=== PATIENT | female | born 1975 | race African-American/Black ===

== ENCOUNTER 2018-04-14 12:57 | Day surgery (SDC) | payer OTHER ==
[2018-04-13 18:04] VITALS: BMI 29.6
[2018-04-14] MEDS ORDERED: ACETAMINOPHEN 325 MG TABLET (FP) PO PRN (14:59)
[2018-04-14] MEDS ORDERED: DEXAMETHASONE SOD PHOSPHATE 4 MG/1 ML VIAL ONE (15:31)
[2018-04-14] MEDS ORDERED: MIDAZOLAM HCL 2 MG/2 ML SINGLE DOSE VIAL ONE (15:32)
[2018-04-14] MEDS ORDERED: PROPOFOL 20 ML ONE ×2 (15:32)
[2018-04-14] MEDS ORDERED: DESFLURANE GAS 240 ML BOTTLE IH ONE (15:35)
[2018-04-14] MEDS ORDERED: ACETAMINOPHEN INJECTION 100 ML IVPB ONE (15:40)
[2018-04-14] MEDS ORDERED: SODIUM CHLORIDE 0.9% P/F 10 ML VIAL IJ ONE (15:49)
[2018-04-14] MEDS ORDERED: ceFAZolin SODIUM 1 GM VIAL ONE (15:49)
[2018-04-14] MEDS ORDERED: ceFAZolin SODIUM 1 GM VIAL IVPB ONE (16:00)
[2018-04-14] MEDS ORDERED: PROMETHAZINE HCL 25 MG/1 ML VIAL IVPUSH PRN (16:18)
[2018-04-14] MEDS ORDERED: ONDANSETRON 4 MG/2 ML VIAL IVPUSH PRN (16:18)
[2018-04-14] MEDS ORDERED: LACTATED RINGERS SOLUTION 1,000 ML IV SCH (16:30)
[2018-04-14] MEDS ORDERED: GLYCOPYRROLATE 0.2 MG/1 ML VIAL ONE (16:38)
[2018-04-14] MEDS ORDERED: BUPIVACAINE HCL/PF 0.5% (5MG/ML) 10 ML VIAL ONE (16:40)
[2018-04-14] MEDS ORDERED: BUPIVACAINE HCL/PF 0.5% (5MG/ML) 10 ML VIAL IJ ONE (16:42)
--- NOTE | 2018-04-14 17:06 | HP ---
Admitting History and Physical - Admission History of Present Illness: 42 yo with known hx/o ectopic for surgical removal Limitations to Obtaining History: No Limitations - Past Medical History Cardiovascular: Yes: HTN Pulmonary: No: Asthma ...LMP: 02/25/18 - Past Surgical History Past Surgical History: Yes: None - Smoking History Smoking history: Never smoked - Alcohol/Substance Use Hx Alcohol Use: Yes (SOCIAL) Home Medications - Allergies Allergies/Adverse Reactions: Allergies Allergy/AdvReac Type Severity Reaction Status Date / Time No Known Allergies Allergy Verified 04/14/18 14:17 - Home Medications Home Medications: Ambulatory Orders Labetalol HCl 100 mg PO BID 04/13/18 Acetaminophen [Tylenol -] 500 mg PO PRN 04/14/18 Oxycodone HCl/Acetaminophen [Percocet 5-325 mg Tablet] 1 tab PO BID #5 tablet MDD 2 04/14/18 Family Disease History - Family Disease History Family History: Denies Review of Systems - Review of Systems Constitutional: reports: No Symptoms Cardiovascular: reports: No Symptoms Respiratory: reports: No Symptoms Gastrointestinal: reports: No Symptoms Genitourinary: reports: No Symptoms Endocrine: reports: No Symptoms Hematology/Lymphatic: reports: No Symptoms Psychiatric: reports: No Symptoms Physical Examination Vital Signs: Vital Signs Temperature 98.4 F 04/14/18 14:25 Pulse Rate 94 H 04/14/18 14:25 Respiratory Rate 18 04/14/18 14:25 Blood Pressure 129/85 04/14/18 14:25 O2 Sat by Pulse Oximetry (%) 100 04/14/18 14:25 Constitutional: Yes: Well Nourished, No Distress, Calm Cardiovascular: Yes: Regular Rate and Rhythm Respiratory: Yes: Regular, CTA Bilaterally Gastrointestinal: Yes: Normal Bowel Sounds, Soft Edema: No Peripheral Pulses WNL: No ...Motor Strength: WNL Imaging - Results Ultrasound: Image Reviewed Assessment/Plan 42 yo with suspected right ectopic for surgical removal 1. Consents reviewed and signed 2. Routine labs reviewed 3. SCDs / TEDS for DVT PPX 4. Ancef data processing control clerk 5. Will proceed to OR
--- NOTE | 2018-04-14 17:07 | OP ---
Operative Note - Note: Operative Date: 04/14/18 Pre-Operative Diagnosis: ruptured right ectopic Operation: laparoscopic right salpingectomy Findings: ruptured right ectopic , approximately 200 cc hemoperitoneum Post-Operative Diagnosis: Same as Pre-op Surgeon: Sania Torres Local Flatbed Driver: Oscar Fajardo Anesthesiologist/HEEL MOLDER: Jair Mathias Anesthesia: General Specimens Removed: right fallopian tube and ectopic Estimated Blood Loss (mls): 5 Drains, Volume Out (mls): 400 (urine) Fluid Volume Replaced (mls): 1,000 Operative Report Dictated: Yes
[2018-04-14] MEDS ORDERED: oxyCODONE HCL 5 MG TABLET PO PRN (17:08)
[2018-04-14 18:24] VITALS: BP 112/72; PULSE 95; TEMP 98
--- NOTE | 2018-04-14 19:53 | OP ---
DATE OF OPERATION: 04/14/2018 ATTENDING PHYSICIAN: Minesh Chung M.D. PREOPERATIVE DIAGNOSIS: Suspected right ectopic . POSTOPERATIVE DIAGNOSIS: A ruptured right ectopic . SURGEON: Minesh Chung M.D. SAP SENIOR DEVELOPER: Oscar Fajardo M.D. ANESTHESIOLOGIST: Sandro Esparza M.D., Jair Mathias, TED INDICATION: Patient is a 42-year-old with a history of the suspected right ectopic for surgical removal. She was counseled regarding risks, benefits, alternatives, and complications to procedure including infection, bleeding, damage to surrounding organs, removal of fallopian tubes. She expressed understanding, was brought to the operating room. DESCRIPTION OF PROCEDURE: When anesthesia was found to be adequate, patient was prepped and draped in normal sterile fashion, placed in dorsal lithotomy position using Tank stirrups. A weighted speculum was placed in the patient's vagina. The anterior lip of the cervix was grasped using an Allis clamp, and a HUMI uterine manipulator was placed into the vagina, and a Diego was placed to gravity. Attention was brought to the abdominal cavity. A 5-mm incision was made with a knife and the abdomen was insufflated with carbon dioxide gas and intraperitoneal placement was confirmed using a Veress needle and using a water drop test. When adequate operating pressure was achieved, a 5-mm trocar was placed under direct visualization. Examination of the abdominal cavity revealed pneumoperitoneum, approximately 200 mL, and left 10-mm trocar was placed under direct visualization, and a 5-mm right trocar was placed under direct visualization of right lower quadrant. Examination of the fallopian tube revealed a right ectopic that looked like it was ruptured, and the decision was made for a right salpingectomy. The right fallopian tube was followed to its fimbriated end, and LigaSure was used to excise the right fallopian tube. The fallopian tube, and accompanying hemoperitoneum was placed into EndoCatch bag, and it was removed. Copious irrigation was performed. All pedicles were examined, found to be hemostatic. The left 10-mm incision was closed using 0 Vicryl using Vinh-Bulmaro device. All trocars were removed. Pneumoperitoneum was released. The examination of the left fallopian tube was normal. There was no intrahepatic lesions. The pneumoperitoneum was released. All instruments were removed from the patient's abdomen, all trocars were removed. All incisions were closed using 4-0 Monocryl, and patient was awoken from anesthesia and brought to the recovery room in stable condition. MINESH CHUNG M.D. [id number] MTDD
--- NOTE | 2018-04-16 15:29 | PATH ---
Surgical Pathology Report Patient Name: GAVI VALDOVINOS [facility]. Rec. #: [id number] /Age/Gender: 1975 (Age: 42) / F Account: [id number] Location: [facility] SUR[facility] Taken: 04/14/2018 Received: 04/15/2018 Reported: 04/16/2018 Physicians: Sania Torres Specimen(s) Received FALLOPIAN TUBE, ECTOPIC Clinical History Ectopic Final Diagnosis RIGHT TUBE AND ECTOPIC , RIGHT SALPINGECTOMY: CHORIONIC VILLI PRESENT, CONSISTENT WITH ECTOPIC (RIGHT FALLOPIAN TUBE) . Electronically Signed Mu Reza M.D. Gross Description Received in formalin labeled "right ectopic ," is a 6 cm in length fimbriated fallopian tube. The outer surface is gaspar guerra with a focal defect. There is blood clot attached to the defect. Sectioning reveals a dilated lumen containing red-brown blood clot. No definite villous tissue or somatic tissue is identified. Also received within the same container is a 10.0 x 7.5 x 2.0 cm aggregate of red-brown blood clot. Treating Engineer Helper sections are submitted in 5 cassettes as follows: 1-fimbria; 2-4-cross sections of fallopian tube; 5- separately received blood clot. 04/15/201804/15/2018
== END 2018-04-14 19:35 | disposition home or self-care (01) ==
LOC: JASU-SURG 12:57
PROVIDERS: ATTEND Obstetrics & Gynecology
PROC: 10T24ZZ Resection of Products of Conception, Ectopic, Percutaneous Endoscopic Approach (ICD-10-PCS; principal; 2018-04-14 14:30)
PROC: 0UT54ZZ Resection of Right Fallopian Tube, Percutaneous Endoscopic Approach (ICD-10-PCS; 2018-04-14 14:30)
DX: O00.101 Right tubal pregnancy without intrauterine pregnancy (principal)
CPT/HCPCS: 36415; 84703; 86850; 86900; 86901; 88305-TC; 94760; J0131

== ENCOUNTER 2018-04-19 20:45 | Emergency (ER) | payer OTHER ==
[2018-04-19 20:57] VITALS: BP 157/111; PULSE 98; TEMP 98.5; BMI 30.1
--- NOTE | 2018-04-19 20:59 | PDOC ---
Rapid Medical Evaluation Chief Complaint: Vaginal Bleeding Time Seen by Provider: 04/19/18 20:54 Medical Evaluation: Allergies Allergy/AdvReac Type Severity Reaction Status Date / Time No Known Allergies Allergy Verified 04/14/18 14:17 04/19/18 20:55 I have performed a brief in-person evaluation of this patient. The patient presents with a chief complaint of:weakness and vaginal bleeding today/ used 2 pads past 30 mins. S/P right oophorectomy wednes for Ectopic Pertinent physical exam findings: Pale, sluggish/ I have ordered the following: CbC/ Cmp/ T and S, IV The patient will proceed to the ED for further evaluation.
--- NOTE | 2018-04-19 21:35 | PDOC ---
History of Present Illness - General Chief Complaint: Vaginal Bleeding Stated Complaint: BLEEDING Time Seen by Provider: 04/19/18 20:54 - History of Present Illness Initial Comments: 04/19/18 22:08 The patient is a 42 year old female with a history of HTN who presents for evaluation of vaginal bleeding. The patient notes that she recently had a right salpingectomy 5 days ago due to a ruptured right ectopic . She notes that she has had diffuse poorly described abdominal pain worse on the left side since her surgery with associated vaginal spotting. She states that today she began to have profuse vaginal bleeding having to change her pad twice in 30 minutes with associated generalized fatigue prompting her presentation to the ED for further evaluation. She otherwise denies fevers, chills, SOB, chest pain, nausea, vomiting, or changes with urination or bowel movements. Past History - Past Medical History Allergies/Adverse Reactions: Allergies Allergy/AdvReac Type Severity Reaction Status Date / Time No Known Allergies Allergy Verified 04/19/18 20:57 Home Medications: Ambulatory Orders Labetalol HCl 100 mg PO BID 04/13/18 Acetaminophen [Tylenol -] 500 mg PO PRN 04/14/18 Oxycodone HCl/Acetaminophen [Percocet 5-325 mg Tablet] 1 tab PO BID #5 tablet MDD 2 04/14/18 Anemia: No Asthma: No Cancer: No Cardiac Disorders: Yes CVA: No COPD: No CHF: No Dementia: No Diabetes: No GI Disorders: No Disorders: No HTN: Yes Hypercholesterolemia: No Liver Disease: No Seizures: No Thyroid Disease: No - Surgical History Abdominal Surgery: No Appendectomy: No Cardiac Surgery: No Cholecystectomy: No Lung Surgery: No Neurologic Surgery: No Orthopedic Surgery: No - Suicide/Smoking/Psychosocial Hx Smoking History: Never smoked Hx Alcohol Use: Yes (SOCIAL) Drug/Substance Use Hx: No Substance Use Type: Alcohol Review of Systems - Review of Systems Comments:: 04/19/18 22:10 Constitutional: Fatigue. No fevers, chills, malaise HEENT: No Rhinorrhea, nasal congestion, visual changes Cardiovascular: No chest pain, syncope, palpitations, lightheadedness Respiratory: No Cough, SOB, Hemoptysis, Gastrointestinal: Abdominal pain. No Nausea, Vomiting, Constipation, Diarrhea, Melena Genitourinary: Vaginal bleeding. No Dysuria, Frequency, Urgency, Hesitancy, Hematuria, Flank pain Musculoskeletal: No Myalgia, arthralgia Skin: No rashes, itching, bruising, pallor Neurologic: No Headache, Dizziness, Numbness, Weakness, or Tingling Psychiatric: No Hallucinations. No SI or HI *Physical Exam - Vital Signs Last Vital Signs Temp Pulse Resp BP Pulse Ox 98.5 F 98 H 18 157/111 H 100 04/19/18 20:54 04/19/18 20:54 04/19/18 20:54 04/19/18 20:54 04/19/18 20:54 - Physical Exam Comments: 04/19/18 22:11 General Appearance: Nourished. No Apparent Distress HEENT: No Pharyngeal Erythema, Tonsillar Exudate, Tonsillar Erythema Neck: No Cervical Lymphadenopathy Respiratory/Chest: Lungs Clear, Normal Breath Sounds. No Crackles, Rales, Rhonchi, Wheezing Cardiovascular: Regular Rhythm, Regular Rate. No Murmur, Gallops, Rubs Gastrointestinal/Abdominal: Normal Bowel Sounds, Soft. Diffuse mild tenderness to palpation on exam. No Guarding, Rebound, Pelvic Exam: Normal External exam. Active bleeding noted with blood pooling in the posterior vaginal vault. No CMT or adenexal tenderness on exam. Musculoskeletal: No CVA Tenderness Extremity: Normal Capillary Refill Integumentary: Normal Color, Dry, Warm Neurologic: Fully Oriented, Alert, Normal Mood/Affect, Normal Response, Moderate Sedation - Procedure Monitoring Vital Signs: Procedure Monitoring Vital Signs Temperature 98.5 F 04/19/18 20:54 Pulse Rate 98 H 04/19/18 20:54 Respiratory Rate 18 04/19/18 20:54 Blood Pressure 157/111 H 04/19/18 20:54 O2 Sat by Pulse Oximetry (%) 100 04/19/18 20:54 ED Treatment Course - LABORATORY CBC & Chemistry Diagram: 04/20/18 00:58 04/19/18 21:22 Medical Decision Making - Medical Decision Making 04/19/18 22:12 The patient is a 42 year old female with a history of HTN who presents for evaluation of vaginal bleeding. Given the patient's history and physical exam, we will obtain a cbc, cmp, type and screen, coags, serum preg to evaluate further. Bedside Fast exam was negative for free fluid performed by myself. We will treat the patient with iv fluids and contact the patient's OB Dr. Ann. We will continue to monitor and reassess while here in the ED. 04/20/18 01:44 CBC demonstrates a hgb of 9.7 and repeat demonstrates a hgb of 7.4. CMP is unremarkable CT abdomen/pelvis demonstrates a fibriod uterus without any acute pathology as preliminarily read by our nutrition associate radiologist. We discussed the case with the patient's ob Dr. Fajardo who stated that the patient's vaginal bleeding is likely due to her no longer being from the removal of the ectopic. Given the patient's drop in HGB we believe she should be observation admitted for further monitoring. The patient voiced that she feels improved and would like to leave AMA and would return should she have any worsening symptoms or to have her HGB rechecked. The patient insists on leaving the emergency dept and is signing out against medical advice. The patient understands the risks and complications that may result from the refusal of medical care and admission which includes and permanent disability. The patient has the mental capacity of understanding the risks of refusing care and is capable of making an informed decision. The patient was instructed to return to the emergency department should hange mind regarding medical care or should condition worsen. The patient signed the Against Medical Advice form. *DC/Admit/Observation/Transfer Diagnosis at time of Disposition: Vaginal bleeding - Discharge Dispostion Disposition: AGAINST MEDICAL ADVICE Condition at time of disposition: Stable - Referrals Referrals: ON STAFF,NOT [Primary Care Provider] - Sania Torres MD [Staff Physician] - - Patient Instructions Printed Discharge Instructions: DI for Vaginal Bleeding Additional Instructions: Please return to the ER if you experience concerning or worsening symptoms including worsening difficulty breathing, weakness, or chest pain, abdominal pain, vaginal bleeding. Your lab results show that you were anemic here in the ER and you will need to have your blood work repeated by your clearance rep physician or primary care provider. Your CT scan was normal here in the ER. Please call to schedule a follow up appointment with your primary care provider and clearance rep specialist Dr. Torres within 2-3 days to discuss your ER visit and further management of your symptoms. - Post Discharge Activity
[2018-04-19 21:39] LABS: EOS % 3.8 % (0-4.5); HEMATOCRIT 28.8 % (32.4-45.2); HEMOGLOBIN 9.7 GM/dL (10.7-15.3); LYMPH % 31.7 % (8-40); MCH 26.2 pg (25.7-33.7); MCHC 33.5 g/dl (32.0-36.0); MEAN CELL VOLUME 78.2 fl (80-96); MEAN PLT VOLUME 6.9 fl (7.5-11.1); MONO % 10.7 % (3.8-10.2); NEUT % 52.8 % (42.8-82.8); PLATELET COUNT 352 K/MM3 (134-434); RBC 3.69 M/mm3 (3.60-5.2); RDW 14.7 % (11.6-15.6); WHITE BLOOD COUNT 4.6 K/mm3 (4.0-10.0)
[2018-04-19 21:49] LABS: INR 1.07 (0.83-1.09); PROTHROMBIN TIME (PATIENT) 12.6 SEC (9.7-13.0)
[2018-04-19 21:52] LABS: ACTIVATED PTT 37.7 SECONDS (25.2-36.5)
[2018-04-19] MEDS ORDERED: SODIUM CHLORIDE 1,000 ML IV STA (21:53)
[2018-04-19 22:08] LABS: BILIRUBIN,TOTAL 0.4 mg/dL (0.2-1); CALCIUM 8.5 mg/dL (8.5-10.1); CO2 27 mmol/L (21-32)
[2018-04-19 22:09] LABS: ALBUMIN 3.6 g/dl (3.4-5.0); ALK PHOS 57 U/L (45-117); ANION GAP 5 MMOL/L (8-16); BLOOD UREA NITROGEN 9 mg/dL (7-18); CHLORIDE 105 mmol/L (98-107); GLUCOSE,RANDOM 92 mg/dL (74-106); SGOT/AST 14 U/L (15-37); SGPT/ALT 15 U/L (13-61); SODIUM 137 mmol/L (136-145); TOT PROT 7.2 g/dl (6.4-8.2)
--- NOTE | 2018-04-20 00:29 | PDOC ---
Attending Attestation - Resident Resident Name: David Hodge - ED Attending Attestation I have performed the following: I have examined & evaluated the patient, The case was reviewed & discussed with the resident, I agree w/resident's findings & plan, Exceptions are as noted - HPI HPI: 04/20/18 00:05 42 F with h/o ruptured right ectopic s/p laparoscopic right salpingectomy on (04/14/18) and HTN presenting to ED with vaginal bleeding and cramps. Pt states that since her procedure, she has had vaginal spotting. However, over the past 24 hours she has had a significant increase in her bleeding. Pt also reports diffuse lower abdominal cramp-like pain. Denies F/C. Denies N/V. - Physicial Exam PE: 04/20/18 00:06 "GENERAL: Awake, alert, and fully oriented, in no acute distress. HEAD: No signs of trauma EYES: PERRLA, EOMI, sclera anicteric, conjunctiva clear ENT: Auricles normal inspection, hearing grossly normal, nares patent, oropharynx clear without exudates. Moist mucosa NECK: Nontender, no stepoffs, Normal ROM, supple, no lymphadenopathy, JVD, or masses LUNGS: Breath sounds equal, clear to auscultation bilaterally. No wheezes, and no crackles HEART: Regular rate and rhythm, normal S1 and S2, no murmurs, rubs or gallops ABDOMEN: + BLQ tenderness, normoactive bowel sounds. No guarding, no rebound. No masses EXTREMITIES: Normal range of motion, no edema. No clubbing or cyanosis. No cords, erythema, or tenderness NEUROLOGICAL: Cranial nerves II through XII intact. 5/5 strength and sensation in all extremities, Normal speech, normal gait, normal cerebellar function SKIN: Warm, Dry, normal turgor, no rashes or lesions noted. : + blood in vault, oozing from os, no CMT - Medical Decision Making 04/20/18 00:07 42 F with vaginal bleeding s/p R oophorectomy last week. Bedside FAST with no free fluid in abdomen. - Labs, T&S Dr. Fajardo, contact center associate OB, recommends CT imaging. 04/20/18 01:21 CT with fibroid, normal post-op changes Repeat CBC with 2 pt drop in Hb. Pt did receive 1L NS, but this is nonetheless a significant drop. Pt reassessed - states that her bleeding has largely subsided. Endorses only mild spotting at this time. I recommended to pt admission for further trending of her CBC and possible transfusion. However, pt is refusing to stay at this time stating that she feels much better. The patient is clinically sober, free from distracting injury, appears to have intact insight and judgment and reason and in my opinion has the capacity to make decisions. I have discussed the need for OB consultation and admission to the hospital. I have told the patient that if they leave, they could get much worse, could become critically ill, and could possibly become disabled or . I have asked them to stay in the hospital for repeat blood tests and possible transfusion. I have discussed these concerns with the patients partner who is at the bedside and he is unable to convince them to stay for further evaluation. She is unwilling to stay overnight for monitoring. She is refusing any further care and is leaving against medical advice. I am unable to convince the patient to stay, I have asked them to return as soon as possible to complete their evaluation. I have answered all their questions.
[2018-04-20 01:08] LABS: BASO % 0.9 % (0-2.0); EOS % 3.4 % (0-4.5); HEMOGLOBIN 7.4 GM/dL (10.7-15.3); LYMPH % 27.8 % (8-40); MCH 26.2 pg (25.7-33.7); MCHC 33.5 g/dl (32.0-36.0); MEAN CELL VOLUME 78.3 fl (80-96); MEAN PLT VOLUME 6.7 fl (7.5-11.1); MONO % 12.4 % (3.8-10.2); NEUT % 55.5 % (42.8-82.8); PLATELET COUNT 284 K/MM3 (134-434); RBC 2.81 M/mm3 (3.60-5.2); RDW 14.8 % (11.6-15.6)
== END 2018-04-20 01:51 | disposition left against medical advice (07) ==
LOC: JER 20:45
PROC: 3E0337Z Introduction of Electrolytic and Water Balance Substance into Peripheral Vein, Percutaneous Approach (ICD-10-PCS; principal; 2018-04-19)
DX: N93.9 Abnormal uterine and vaginal bleeding, unspecified (principal); I10 Essential (primary) hypertension; I51.9 Heart disease, unspecified
CPT/HCPCS: 36415; 74177-TC; 80053; 84702; 84703; 85025; 85610; 85730; 86850; 86900; 86901; 99283-25; J7030